=== PATIENT | male | born 1950 | race American Indian/Alaskan Native ===

== ENCOUNTER 2021-10-04 22:13 | Emergency (ER) | payer MEDICARE, OTHER ==
[~2021-10-04] VITALS: Ht 170.2 cm; Wt 94.8 kg
[~2021-10-04 22:13] MED LIST: ALEVE220 M1 PO; AUGMENTIN 875-1 EACH PO; HYDROCODON-ACE1 EA11 PO; NORCO 5-325 TA1 EACH PO; PERCOCET 5-3251 EACH PO
[2021-10-04] MEDS ORDERED: HYDROCODON-ACE1 EA10 PO (23:30)
== END 2021-10-04 23:40 | disposition home or self-care (01) ==
LOC: ED 22:13
DX: M23.92 Unspecified internal derangement of left knee (principal); Z88.1 Allergy status to other antibiotic agents
CPT/HCPCS: 73560; 99283-25

== ENCOUNTER 2022-11-01 05:23 | Day surgery (SDC) | payer OTHER, MEDICARE ==
[~2022-11-01] VITALS: Ht 170.2 cm; Wt 93.1 kg
--- NOTE | ~2022-11-01 | OR ---
[facility] [address] [place], [place] [address] [place] DATE OF OPERATION: 11/01/2022 SURGEON: Maggi Tellez MD PREOPERATIVE DIAGNOSIS: DJD left knee, severe. POSTOPERATIVE DIAGNOSIS: DJD left knee, severe. PROCEDURE PERFORMED: Left total knee arthroplasty with Andre. DOCUMENT PHOTOGRAPHER: Idania Walls PA-C. Idania was present and critical for all portions of procedure. ANESTHESIA: Spinal. BLOOD LOSS: 200 mL. TOURNIQUET TIME: Zero. IMPLANTS: Ju Triathlon size 6 femur, 5 tibia, 11 mm polyethylene and a 35 mm patella. BRIEF HISTORY: Harriet is a 71-year-old gentleman with progressive worsening of osteoarthritis in varus pattern. Risks and benefits of operative treatment were discussed with him and he elected to proceed. DESCRIPTION OF PROCEDURE: Once consent was obtained, he was taken to the operating room. After adequate anesthesia, he was placed on the operating table on a hip bump. The leg was prepped and draped in a standard sterile fashion. The knee was approached through standard anterior midline incision, carried through the skin and subcutaneous tissue. Mid vastus arthrotomy was performed and the MCL was elevated with a sleeve around the posteromedial PATIENT NAME: HARRIET TOVAR JR OPERATIVE REPORT DATE OF : 50 REPORT #: [id number] PHYSICIAN: MAGGI TELLEZ MD PCP: ZHANE SMITH MD REPORT IS CONFIDENTIAL AND NOT TO BE RELEASED WITHOUT AUTHORIZATION [facility] [address] [place], [place] [address] [address] corner. The fat pad was removed and the ACL was transected. PCL was found to be intact. No meniscus was remaining of any significance. The navigation computer array was then placed in the medial femoral condyle and proximal tibia and the leg was registered with the computer as were the fine anatomic points of the knee. Once this was completed, varus valgus balancing was undertaken, which required some motion of both the femoral and tibial components. Once the balance was achieved, the robot was brought in. The four straight cuts were made followed by the two angled cuts with care taken to protect the patellar tendon and MCL. The bony remnants and all osteophytes were removed. Posterior osteophytes were removed off the femur. The trials were then positioned. The knee was extended and taken through range of motion with good stability throughout using an 11 mm polyethylene. The patella was cut sized and drilled for 35 patella. The distal femoral drill holes were finished and the keel punch was used to finish the tibia. The knee was copiously irrigated throughout the procedure. A total of two bottles of Irrisept and 1 L of normal saline was used under manual irrigation. The tibia was impacted into position first followed by the polyethylene. The femur was impacted. The knee was extended and nicely loaded. The patella was clamped into position and the clamp was removed. Patellar tracking was quite good. The periarticular soft tissues were injected with 100 mL of ropivacaine and Toradol mixture. The On-Q pain pump was percutaneously placed into the adductor canal from the suprapatellar pouch. The arthrotomy was then closed using #2 Stratafix, subcutaneous tissue with 0-Quill and the skin with alexandra. Wound was dressed with an Aquacel dressing, ABDs, and Grzegorz wrap. He tolerated the procedure well and all sponge, needle, and instrument counts were correct. Maggi Tellez MD BA/SHAHRIAR /[id number] Copies: ~ PATIENT NAME: HARRIET TOVAR JR OPERATIVE REPORT DATE OF : 50 REPORT #: [id number] PHYSICIAN: MAGGI TELLEZ MD PCP: ZHANE SMITH MD REPORT IS CONFIDENTIAL AND NOT TO BE RELEASED WITHOUT AUTHORIZATION
[~2022-11-01 05:23] MED LIST changes: +HYDROCODON-ACE1 EA10 PO; +MULTIVITAMIN1 EACH PO
[2022-11-01] MEDS ORDERED: CELECOXIB200 MG PO (08:38)
[2022-11-01] MEDS ORDERED: OXYCODONE HCL5 MG PO ×2 (08:38→10:29)
[2022-11-01] MEDS ORDERED: SENNA LAX8.6 MG PO (08:39)
[2022-11-01] MEDS ORDERED: ASPIRIN EC325 MG PO ×2 (08:39→10:29)
--- NOTE | 2022-11-01 08:47 | NUR ---
11/01/22 0847 Linda Reyes 0840 PATIENT ARRIVES TO PACU RESTING WITH EYES CLOSED. AWAKE OFF/ON. ASKS/ANSWERS QUESTIONS APPROPRIATELY. RESP EVEN AND UNLABORED, ROOM AIR SATS >96%. DENIES PAIN OR NAUSEA.
--- NOTE | 2022-11-01 09:20 | NUR ---
RECEIVED PT FROM PACU VIA BED. REPORT RECEIVED FROM ALEISHA MONDRAGON. PT RESTING IN BED A&O X4. PT REPORTS PAIN 3/10 IN LFT KNEE AT THIS TIME BUT STATES TOLERABLE AND NO NEED FOR PRN MEDS. PT REPORTS NO NAUSEA, DIZZINESS, N/T, SOB. DRESSING IS C/D/I, NO SIGNS OF BLEEDING AT THIS TIME. CRYO CUFF, FOOT PUMPS, ON-Q PUMP IN PLACE AND WNL. IV SITE WNL. PT TOLERATED FULL CUP OF ICE WATER AND CHOCOLATE PUDDING W/OUT DIFFICULTY SWALLOWING. VSS. PT ON RA W/O2 SATS >90%. CALL LIGHT WITHIN REACH, NO FURTHER NEEDS AT THIS TIME. PT COUSIN ON FILE CALLED D/T NEED FOR HAND PRESCRIPTION DELIVERY, [facility] IS CLOSED TODAY D/T HOLIDAY, VERIFIED W/PT OK TO CHANGE TO [facility], WILL FAX PRESCRIPTION, UPDATED IN PT FILE.
--- NOTE | 2022-11-01 10:22 | NUR ---
IN PT ROOM FOR VS AND ASSESSMENT. PT RESTING IN BED W/EYES CLOSED, AWAKENS EASILY TO VOICE. PT A&O X4 AT THIS TIME. PT REPORTS PAIN 2/10 IN LFT KNEE AT THIS TIME AND STATES IT IS LIKE AN ACHE, PT STATES NO NEED FOR PRN PAIN MEDS AT THIS TIME. PT REPORTS NO NAUSEA, DIZZINESS, N/T, SOB. DRESSING IS C/D/I, NO SIGNS OF BLEEDING AT THIS TIME. STRONG PEDAL PULSE, SKIN IS PINK/DRY/WARM, SENSATION INTACT. CRYO CUFF, HEEL PROTECTORS, ON-Q PUMP, FOOT PUMPS IN PLACE AT THIS TIME. IV SITE WNL, INFUSING FLUIDS DIRECTED. CALL LIGHT WITHIN REACH, NO FURTHER NEEDS AT THIS TIME. VSS, RA W/O2 SATS >90% AT THIS TIME.
[2022-11-01] MEDS ORDERED: CELEBREX200 MG PO (10:29)
--- NOTE | 2022-11-01 10:59 | NUR ---
PHYS THERAPY IN ROOM W/PT AT THIS TIME. PT 480 ML IN BEDSIDE URINAL, EMPTIED. SALINE LOCKED AT THIS TIME.
--- NOTE | 2022-11-01 12:30 | NUR ---
PT PASSED PHYSICAL THERAPY AND IS NOW RESTING IN BED FULLY DRESSED, A&O X4. PT REPORTS PAIN 1/10 IN LFT KNEE, STATES NO NEED FOR PRN PAIN MED AT THIS TIME. PT STATES NO NAUSEA, N/T, DIZZINESS, SOB AT THIS TIME. DRESSING IS C/D/I, NO SIGNS OF BLEEDING AT THIS TIME. VSS. IV SITE WNL, ABX GIVEN AT THIS TIME. PT OK'ED TO DC BY DR. AYERS. DISCHARGE EDUCATION PROVIDED, PT STATED VERBAL UNDERSTANDING AND NO FURTHER QUESTIONS. IV DC'ED, CATHETER TIP INTACT, GAUZE AND COBAN IN PLACE. ALL BELONGINGS W/PT, WHEELCHAIR TRANSPORTATION OUT TO COUSIN'S VEHICLE. NO FURTHER NEEDS, SAFELY TRANSPORTED INTO PASSENGER SIDE OF VEHICLE.
== END 2022-11-01 12:30 | disposition home or self-care (01) ==
LOC: DS 05:23
PROVIDERS: ATTEND Specialist
PROC: 3E0T3BZ Introduction of Anesthetic Agent into Peripheral Nerves and Plexi, Percutaneous Approach (ICD-10-PCS; 2022-11-01)
PROC: 0SRD0JZ Replacement of Left Knee Joint with Synthetic Substitute, Open Approach (ICD-10-PCS; principal; 2022-11-01 07:00)
DX: M17.12 Unilateral primary osteoarthritis, left knee (principal)
CPT/HCPCS: J0690; J1100; J1885; J2001; J2250; J2704; J2795; J7121

== ENCOUNTER 2024-06-22 18:08 | Emergency (ER) | payer MEDICARE, OTHER ==
[~2024-06-22] VITALS: Ht 170.2 cm; Wt 98.9 kg
[~2024-06-22 18:08] MED LIST changes: +ASPIRIN EC325 MG PO; +CELEBREX200 MG PO; +CELECOXIB200 MG PO; +OXYCODONE HCL5 MG PO; +SENNA LAX8.6 MG PO
[2024-06-22] MEDS ORDERED: DIPHTH,PERTUSS(ACELL),TET VAC 0.5 ML SYRINGE IM ONE (19:15)
[2024-06-22] MEDS ORDERED: AMOX TR-K CLV1 EAC1 PO (19:51)
[2024-06-22] MEDS ORDERED: AMOXICILLIN/CLAVULANATE K 875 MG HOME.PACK PO ONE (20:00)
[2024-06-22 20:29] VITALS: BP 144/129
== END 2024-06-22 20:28 | disposition home or self-care (01) ==
LOC: ED 18:08
DX: L03.012 Cellulitis of left finger (principal); Z88.8 Allergy status to other drugs, medicaments and biological substances; Z79.82 Long term (current) use of aspirin; W31.89XA Contact with other specified machinery, initial encounter
CPT/HCPCS: 73140; 90471; 90715; 99283-25